=== PATIENT | female | born 1975 | race Caucasian/White ===

== ENCOUNTER → 2017-02-05 | Outpatient (CLI) | payer OTHER ==
[~2017-02-05] MED LIST: ASPIRIN CHEWABL81 MG PO; COGENTIN 2MG TAB2 MG PO; COREG 3.125M3.125 MG PO; DIGOX250 MCG PO; FIORICET TAB1 EA PO; LEVOCETIRIZINE D5 MG PO; LISINOPRIL5 MG PO; NORCO 5-325 TA1 EACH PO; PLAVIX 75 MG TA75 MG PO; TOPAMAX100 MG PO; TRAMADOL HCL50 MG PO; VITAMIN D50000 UNIT PO; ZANAFLEX 4 MG TA4 MG PO; ZANTAC300 MG PO
== END ==
LOC: KOH-I 08:30
DX: R10.9 Unspecified abdominal pain (principal); R10.32 Left lower quadrant pain; R10.31 Right lower quadrant pain; M89.8X8 Other specified disorders of bone, other site; R22.2 Localized swelling, mass and lump, trunk; G89.4 Chronic pain syndrome; Z98.1 Arthrodesis status; M54.16 Radiculopathy, lumbar region; R10.2 Pelvic and perineal pain
CPT/HCPCS: 76856

== ENCOUNTER → 2020-10-12 | Outpatient (CLI) | payer BC, OTHER ==
[~2020-10-12] MED LIST changes: +COL-RITE250 MG PO; +COREG6.25 MG PO; +EPIPEN 2-P0.3 MG/0.3 SC; +FERROUS GLUCON324 MG PO; +FLONASE 0.05% N16 GM; +IPRATROPIUM BROMIDE; +LINZESS290 MCG PO; +NORCO 7.5-3251 EACH PO; +PHENERGAN 25 MG25 M1 PO; +PRINIVIL5 MG PO; +VITAMIN C 500500 MG PO; +VITAMIN D250000 UNIT PO; +ZANAFLEX4 MG PO; +ZOFRAN4 MG PO
[2020-10-12 10:29] LABS: HEMOGLOBIN 13.8 gm/dl (12.3-15.3); RED BLOOD COUNT 4.28 M/UL (4.00-5.10); WHITE BLOOD COUNT 6.2 K/UL (4.5-11.0)
[2020-10-12 10:56] LABS: BUN/CREATININE RATIO 23 (0-10)
[2020-10-13 10:10] LABS: SARS COV-2 IGG AB Negative (Negative); VITAMIN D, 25-HYDROXY 43.6 ng/mL (30.0-100.0)
== END ==
LOC: LAB 09:53
PROVIDERS: Nurse Practitioner Family
DX: Z11.52 Encounter for screening for COVID-19 (principal); R52 Pain, unspecified; R53.83 Other fatigue; E53.8 Deficiency of other specified B group vitamins; E78.5 Hyperlipidemia, unspecified
CPT/HCPCS: 80053; 80061; 82607; 84439; 84443; 85025; 86769

== ENCOUNTER 2021-04-22 10:57 | Emergency (ER) | payer BC, OTHER ==
[~2021-04-22] VITALS: Ht 167.6 cm; Wt 59.0 kg
[2021-04-22] MEDS ORDERED: VENTOLIN HFA 66.7 GM INH (12:13)
[2021-04-22] MEDS ORDERED: DELSYM30 MG/5 ML PO (12:13)
== END 2021-04-22 14:00 | disposition home or self-care (01) ==
LOC: ER1 10:57
DX: Z23 Encounter for immunization (principal); U07.1 COVID-19; I42.9 Cardiomyopathy, unspecified
CPT/HCPCS: 99283; M0243

== ENCOUNTER → 2021-05-29 | Outpatient (CLI) | payer OTHER ==
[~2021-05-29] MED LIST changes: +DELSYM30 MG/5 ML PO; +VENTOLIN HFA 66.7 GM INH
[2021-05-29 12:21] LABS: HEMOGLOBIN 12.6 gm/dl (12.3-15.3); RED BLOOD COUNT 3.88 M/UL (4.00-5.10); WHITE BLOOD COUNT 5.3 K/UL (4.5-11.0)
[2021-05-29 12:49] LABS: BUN/CREATININE RATIO 15 (0-10)
[2021-05-30 08:14] LABS: ANTISTREPTOLYSIN O AB 237.7 IU/mL (0.0-200.0); RHEUMATOID ARTHRITIS FACTOR <10.0 IU/mL (0.0-13.9); VITAMIN D, 25-HYDROXY 34.1 ng/mL (30.0-100.0)
[2021-05-30 09:14] LABS: THYROID PEROXIDASE (TPO) AB 8 IU/mL (0-34)
[2021-05-30 15:14] LABS: THYROGLOBULIN ANTIBODY <1.0 IU/mL (0.0-0.9)
== END ==
LOC: LAB 10:29
PROVIDERS: Nurse Practitioner Family
DX: Z00.00 Encounter for general adult medical examination without abnormal findings (principal); R53.83 Other fatigue; M25.50 Pain in unspecified joint; J01.10 Acute frontal sinusitis, unspecified; J30.9 Allergic rhinitis, unspecified; M54.2 Cervicalgia; K59.09 Other constipation; G89.4 Chronic pain syndrome; G44.59 Other complicated headache syndrome; E78.5 Hyperlipidemia, unspecified; R19.7 Diarrhea, unspecified; R31.9 Hematuria, unspecified; E55.9 Vitamin D deficiency, unspecified; E53.8 Deficiency of other specified B group vitamins
CPT/HCPCS: 80053; 80061; 81001; 82607; 84439; 84443; 84550; 85025; 85652; 86038; 86060; 86141; 86376; 86431; 86800